=== PATIENT | male | born 2000 | race Caucasian/White ===

== ENCOUNTER 2024-04-17 15:15 | Emergency (ER) | payer SELFPAY ==
[~2024-04-17] VITALS: Ht 182.9 cm; Wt 95.3 kg
[2024-04-17 15:45] VITALS: BP 142/104; PULSE 86; RESP 20; TEMP 97; O2SAT 97
[2024-04-17 15:55] VITALS: O2SAT 97
[2024-04-17] MEDS: KETOROLAC 30 MG/ML VIAL IM ONE (16:32)
[2024-04-17] MEDS: MORPHINE SULFATE 4 MG/ML SYR IM ONE (16:33)
[2024-04-17 17:03] LABS: BASOPHILS % (AUTO) 0.3 % (0.0-2.0); EOSINOPHILS % (AUTO) 0.4 % (0.0-4.0); HEMATOCRIT 44.4 % (36-52); HEMOGLOBIN 15.1 g/dL (12.0-18.0); LYMPHOCYTES # (AUTO) 1.3 K/uL (2.0-11.5); LYMPHOCYTES % (AUTO) 10.4 % (20.5-51.1); MEAN CORPUSCULAR HEMOGLOBIN 30 pg (27-31); MEAN CORPUSCULAR HGB CONC 34 g/dL (33-37); MEAN CORPUSCULAR VOLUME 89.4 fL (80-94); MONOCYTES # (AUTO) 0.7 K/uL (0.8-1.0); MONOCYTES % (AUTO) 5.5 % (1.7-9.3); NEUTROPHILS # (AUTO) 10.1 K/uL (1.8-7.7); NEUTROPHILS % (AUTO) 83.4 % (42.2-75.2); PLATELET COUNT (AUTO) 251 K/uL (140-450); RED BLOOD CELL COUNT(AUTO) 4.97 MIL/uL (4.20-6.10); WHITE BLOOD COUNT (AUTO) 12.1 K/uL (4.8-10.8)
[2024-04-17 17:07] LABS: BILIRUBIN,URINE NEGATIVE (NEGATIVE); BLOOD, URINE 3+ (NEGATIVE); COLOR,URINE YELLOW (YELLOW); LEUKOCYTE ESTERASE ,URINE NEGATIVE (NEGATIVE); NITRITE, URINE NEGATIVE (NEGATIVE); PROTEIN,URINE NEGATIVE (NEGATIVE); UGLUCOSE NEGATIVE (NEGATIVE); UROBILINOGEN,URINE 0.2 EU/dL (0.2 - 1)
[2024-04-17 17:08] LABS: APPEARANCE,URINE SLIGHTLY HAZY (CLEAR)
[2024-04-17 17:09] LABS: BACTERIA,URINE 2+ /HPF (None Seen); RBC,URINE 20-50 /HPF (0-5)
[2024-04-17 17:10] LABS: MUCUS,URINE 2+ /LPF (None Seen); SQUAMOUS EPITHELIAL CELL,UR 4-10 (MOD) /LPF (0-3 (FEW))
[2024-04-17 17:17] LABS: ALBUMIN 4.2 g/dL (3.4-5.0); ANION GAP 10.9 (8-16); ASPARTATE AMINOTRANSFERASE 30 U/L (15-37); CALCIUM 9.3 mg/dL (8.5-10.1); CARBON DIOXIDE 27.8 mmol/L (21-32); CHLORIDE 101 mmol/L (98-107); CREATININE 1.2 mg/dL (0.6-1.3); GFR ARICAN-AMERICAN 94 mL/min (>90); GFR NON ARICAN-AMERICAN 78 mL/min (>90); GLUCOSE 111 mg/dL (74-106); LIPASE 29 U/L (16-77); POTASSIUM 3.7 mmol/L (3.5-5.1); SODIUM SERUM 136 mmol/L (136-145); UREA NITROGEN, BLOOD 9 mg/dL (7-18)
[2024-04-17] MEDS ORDERED: TAMS0.4C96 PO (17:51)
[2024-04-17] MEDS ORDERED: ACET-5636 PO (17:51)
[2024-04-17] MEDS ORDERED: CIPR500T4 PO (18:09)
== END 2024-04-17 18:27 | disposition home or self-care (01) ==
LOC: MED 15:15
DX: N20.0 Calculus of kidney (principal); K21.9 Gastro-esophageal reflux disease without esophagitis; Z79.2 Long term (current) use of antibiotics; Z79.899 Other long term (current) drug therapy; Z88.1 Allergy status to other antibiotic agents; Z88.8 Allergy status to other drugs, medicaments and biological substances
CPT/HCPCS: 36415; 74176; 80053; 81001; 83690; 85025; 96372; 99285; J1885; J2270